=== PATIENT | female | born 1990 | race Two or more races ===

== ENCOUNTER 2018-03-30 08:16 | Emergency (ER) | payer BC ==
[2018-03-30 08:33] VITALS: BP 119/81
--- NOTE | 2018-03-30 08:46 | UC ---
Brian Bedolla Gabriel, scribed for Evgeny Cruz MD on 03/30/18 at 0834 . Eye Complaint HPI - HPI Summary HPI Summary: This patient is a 27 year old F presenting to [facility] with a chief complaint of right eye irritation that began yesterday. The patient rates the pain 2/10 in severity. Patient reports mild photophobia, eye pain, and some itching. Patient denies discharge, blurred vison, and injury. Pt has removed her contacts and not put them back in. She just got over a cold. - History of Current Complaint Stated Complaint: RIGHT EYE COMPLAINT Time Seen by Provider: 03/30/18 08:29 Hx Obtained From: Patient Hx Last Menstrual Period: 08/30/15 Onset/Duration: Lasting Days - 1, Still Present Timing: Constant Severity Initially: Mild Severity Currently: Mild Pain Intensity: 2 Location of Injury: Conjunctiva Aggravating Factor(s): Light Associated Signs And Symptoms: Positive: Photophobia. Negative: Drainage (Clear ), Drainage (Purulent), Vision Impairment Bilateral, Vision Impairment Right, Vision Impairment Left - Allergies/Home Medications Allergies/Adverse Reactions: Allergies Allergy/AdvReac Type Severity Reaction Status Date / Time No Known Allergies Allergy Verified 03/30/18 08:34 PMH/Surg Hx/FS Hx/Imm Hx Previously Healthy: Yes Other History Of: Negative For: Hepatitis B, Anticoagulant Therapy - Surgical History Surgical History: None - Family History Known Family History: Positive: Hypertension, Diabetes - Social History Occupation: Employed Full-time Lives: With Family Alcohol Use: None Substance Use Type: None Smoking Status (MU): Never Smoked Tobacco - Immunization History Most Recent Influenza Vaccination: 2011 Most Recent Tetanus Shot: 2010 Most Recent Pneumonia Vaccination: no Review of Systems Constitutional: Negative - fever Eyes: Eye Redness, Photophobia, Other - eye pain and itching All Other Systems Reviewed And Are Negative: Yes Physical Exam - Summary Physical Exam Summary: General: well-appearing, no pain distress Skin: warm, color reflects adequate perfusion, dry Head: normal Eyes: EOMI, LUCI, There is a right scleral injection. Pupils nml, no hyphemia, no evidence of trauma ENT: normal Neck: supple, nontender Respiratory: CTA, breath sounds present Cardiovascular: RRR Abdomen: soft, nontender Bowel: present Musculoskeletal: normal, strength/ROM intact Neurological: sensory/motor intact, A&O x3 Psychological: affect/mood appropriate Triage Information Reviewed: Yes Vital Signs: Initial Vital Signs Temp 97.9 F 03/30/18 08:31 Pulse 82 03/30/18 08:31 Resp 16 03/30/18 08:31 BP 119/81 03/30/18 08:31 Pulse Ox 98 03/30/18 08:31 Vital Signs Reviewed: Yes Eye Complaint Course/Dx - Course Course Of Treatment: NO TRAUMA. NO PAIN OR DECREASED VISION AT THIS TIME. RX TOBREX. DO NOT WEAR CONTACTS. F/U [facility] IF NOT COMPLETELY IMPROVED. 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 GET RECHECKED FOR ANY WORSENING OF YOUR CONDITION OR QUESTIONS OR CONCERNS. - Billing Disposition and Condition Condition: STABLE Disposition: Home The documentation as recorded by the Brian mckinley Gabriel accurately reflects the service I personally performed and the decisions made by me, Evgeny Cruz MD.
== END 2018-03-30 08:41 | disposition home or self-care (01) ==
LOC: UCEAST 08:16
DX: H10.9 Unspecified conjunctivitis (principal)
CPT/HCPCS: 99212; G0463

== ENCOUNTER 2018-05-09 13:02 | Emergency (ER) | payer BC ==
[2018-05-09 13:19] VITALS: BP 114/80
[2018-05-09] MEDS ORDERED: Ketorolac INJ* 60 MG/2 ML VIAL IM ONE (13:23)
--- NOTE | 2018-05-09 13:27 | UC ---
Upper Extremity HPI - HPI Summary HPI Summary: This is scribe Tracy Yap documenting for attending Leobardo Gutierrez M.D. Pt is a 27 y/o F who presents to [facility] c/o right 3rd and 4th finger pain s/p injury. 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 Associated pain is currently ranked 7-8/10 and applied ice upon arrival. - History of Current Complaint Chief Complaint: UCUpperExtremity Stated Complaint: FINGERS INJURY Hx Obtained From: Patient Hx Last Menstrual Period: last week Onset/Duration: Lasting Minutes - Started minutes AIRPLANE DESIGNER, Still Present Severity Currently: Moderate Pain Intensity: 7 Pain Scale Used: 0-10 Numeric Location Of Pain: Is Discrete @ - Right 3rd and 4th fingers Aggravating Factor(s): Nothing Alleviating Factor(s): Nothing - Allergies/Home Medications Allergies/Adverse Reactions: Allergies Allergy/AdvReac Type Severity Reaction Status Date / Time No Known Allergies Allergy Verified 05/09/18 13:14 Home Medications: Home Medications Ocrelizumab [Ocrevus] 300 mg IV 05/09/18 [History] PMH/Surg Hx/FS Hx/Imm Hx - Additional Past Medical History Additional PMH: PMHx: MS NEGATIVE PMHx: HTN, CAD, DM Other History Of: Negative For: Hepatitis B, Anticoagulant Therapy - Surgical History Surgical History: None - Family History Known Family History: Positive: Hypertension, Diabetes - Social History Alcohol Use: Occasionally Substance Use Type: None Smoking Status (MU): Never Smoked Tobacco - Immunization History Most Recent Influenza Vaccination: 2011 Most Recent Tetanus Shot: 2010 Most Recent Pneumonia Vaccination: no Review of Systems Constitutional: Negative Skin: Negative Eyes: Negative ENT: Negative Respiratory: Negative Cardiovascular: Negative Gastrointestinal: Negative Genitourinary: Negative Motor: Negative Neurovascular: Negative Musculoskeletal: Other: - Right 3rd and 4th finger pain Neurological: Negative Psychological: Negative All Other Systems Reviewed And Are Negative: Yes Physical Exam - Summary Physical Exam Summary: VITAL SIGNS: Reviewed. GENERAL: Patient is a well-developed and nourished female who is lying comfortable in the stretcher. Patient is not in any acute respiratory distress. HEAD AND FACE: Normocephalic EYES: PERRLA, EOMI x 2. EARS: Hearing grossly intact. MOUTH: Oropharynx within normal limits. NECK: Supple, trachea is midline, no adenopathy, no JVD, no carotid bruit. CHEST: Symmetric, no tenderness at palpation LUNGS: Clear to auscultation bilaterally. No wheezing or crackles. CVS: Regular rate and rhythm, S1 and S2 present, no murmurs or gallops appreciated. EXTREMITIES: Full ROM in all major joints, no edema, no cyanosis or clubbing. Right index and middle finger erythema and the right ring finger has a subungal hematoma. NEURO: Alert and oriented x 3. No acute neurological deficits. Speech is normal and follows commands. SKIN: Dry and warm Triage Information Reviewed: Yes Vital Signs: Initial Vital Signs Temp 99.9 F 05/09/18 13:14 Pulse 81 05/09/18 13:14 Resp 20 05/09/18 13:14 BP 114/80 05/09/18 13:14 Pulse Ox 100 05/09/18 13:14 Vital Signs Reviewed: Yes Diagnostics - Radiology Hand XR Radiology Interpretation Completed By: Radiologist - No fracture of the right hand is noted. Joint spaces well-preserved. Physician reviewed this report. Upper Extremity Course/Dx - Course Course Of Treatment: Patient is a 27-year-old female who presents to the urgent care with a chief complaint of having right fingers pain. X-ray shows that the patient has had distal phalanx fracture second and third digits nondisplaced. The patient doesn't have a subungual hematoma this point. However the patient was instructed to use if the pain increases and she has and the bridge discoloration under the nails she should return to the urgent care to reduce the pressure. She understands and agrees. The patient was placed in finger splints she was given pain medications and discharged home with follow-up with orthopedics. Patient also was given Toradol in the urgent care and she feels better. - Differential Dx/Diagnosis Provider Diagnoses: Finger fractures Discharge - Sign-Out/Discharge Documenting (check all that apply): Patient Departure - Discharge - Discharge Plan Condition: Stable Disposition: HOME Prescriptions: HYDROcodone/ACETAMIN 5-325 MG* [[place] 5-325 TAB*] 1 tab PO Q6H PRN #12 tab MDD 4 PRN Reason: Pain Patient Education Materials: Finger Fracture (ED) Forms: *Work Release Referrals: Nitesh Gutierrez MD [Primary Care Provider] - 3 Days Amber Cage MD [Medical Doctor] - 3 Days Additional Instructions: RETURN TO ED OR URGENT CARE FOR ANY NEW OR WORSENING SYMPTOMS.
--- NOTE | 2018-05-09 14:18 | RAD ---
Indication: Hand pain. 2 views of the right hand demonstrates no fracture. No other bone or joint abnormality is identified. IMPRESSION: No fracture of the right hand is noted. Joint spaces well-preserved.
== END 2018-05-09 13:50 | disposition home or self-care (01) ==
LOC: UCEAST 13:02
DX: S69.91XA Unspecified injury of right wrist, hand and finger(s), initial encounter (principal); W23.0XXA Caught, crushed, jammed, or pinched between moving objects, initial encounter; Y93.E6 Activity, residential relocation; Y92.9 Unspecified place or not applicable; Z82.49 Family history of ischemic heart disease and other diseases of the circulatory system; Z83.3 Family history of diabetes mellitus
CPT/HCPCS: 99213; G0463; J1885

== ENCOUNTER 2018-05-19 13:23 | Emergency (ER) | payer BC ==
[2018-05-19 13:47] VITALS: BP 124/72
--- NOTE | 2018-05-19 14:50 | UC ---
Back Pain HPI - HPI Summary HPI Summary: The pt is a 27 Y/o female presenting to c/o L flank and LLQ pain since yesterday night worse today. The pain described as sharp is rated 6/10 at worst and radiates to the gluteal region. She took Ibuprofen to no temporary relief. She is concerned about a UTI. The pain is aggravated by laying down, touch and walking . The pt denies recent injury. She also denies rash , loss of appetite, melena, and vaginal discharge. The s are similar to those of a previous episode of a UTI. This is scribe Kyra Branham documenting for attending Dr. Evgeny Cruz. I, Dr. Evgeny Cruz , personally performed the services described in this documentation as scribed in my presence and it is both accurate and complete. - History of Current Complaint Chief Complaint: UCBackPain Stated Complaint: BACK PAIN Time Seen by Provider: 05/19/18 14:30 Hx Obtained From: Patient Hx Last Menstrual Period: last week ?: No Onset/Duration: Lasting Days - 2 days, Worse Since - Today Timing: Constant Severity Initially: Mild Severity Currently: Mild Pain Intensity: 3 Pain Scale Used: 0-10 Numeric Back Pain: Is Discrete @ - L lower back pain Character: Sharp Aggravating Factor(s): Walking, Other - Laying down, touch Associated Signs And Symptoms: Positive: Negative - rash , loss of appetite, melena, and vaginal discharge., Abdominal Pain, Flank Pain - L side - Allergies/Home Medications Allergies/Adverse Reactions: Allergies Allergy/AdvReac Type Severity Reaction Status Date / Time No Known Allergies Allergy Verified 05/19/18 13:47 Home Medications: Home Medications Ibuprofen 200 mg PO 05/19/18 [History] PMH/Surg Hx/FS Hx/Imm Hx Previously Healthy: Yes - Denies a pMHx of shingles ,Crohns, and nephrolithiasis Other Neurological History: MS Other History Of: Negative For: Hepatitis B, Anticoagulant Therapy - Surgical History Surgical History: None - Family History Known Family History: Positive: Hypertension, Diabetes - Social History Occupation: Employed Full-time Lives: With Family Alcohol Use: Occasionally Substance Use Type: None Smoking Status (MU): Never Smoked Tobacco - Immunization History Most Recent Influenza Vaccination: 2011 Most Recent Tetanus Shot: 2010 Most Recent Pneumonia Vaccination: no Review of Systems Skin: Negative - Rash Gastrointestinal: Negative - Loss of appetite, melena, Abdominal Pain - L flank and LLQ Genitourinary: Negative - Vaginal discharge All Other Systems Reviewed And Are Negative: Yes Physical Exam - Summary Physical Exam Summary: General: well-appearing, no pain distress Skin: warm, color reflects adequate perfusion, dry Head: normal Eyes: EOMI, LUCI ENT: normal Neck: supple, nontender Respiratory: CTA, breath sounds present Cardiovascular: RRR Abdomen: soft, Mild tenderness to percussion of the L flank. No rash Bowel: present Musculoskeletal: normal, strength/ROM intact Neurological: sensory/motor intact, A&O x3 Psychological: affect/mood appropriate Triage Information Reviewed: Yes Vital Signs: Initial Vital Signs Temp 98.7 F 05/19/18 13:43 Pulse 70 05/19/18 13:43 Resp 18 05/19/18 13:43 BP 124/72 05/19/18 13:43 Pulse Ox 100 05/19/18 13:43 Vital Signs Reviewed: Yes Diagnostics - Radiology CT abd/ pel w/o contrast Radiology Interpretation Completed By: Radiologist - IMPRESSION: 1. NO HYDRONEPHROSIS OR NEPHROLITHIASIS. The ED physician has reviewed this radiology report and agrees wit it. Transaginal US Radiology Interpretation Completed By: Radiologist - IMPRESSION: INVOLUTING CYST RIGHT OVARY, OTHERWISE NEGATIVE The ED physician has reviewed thios radiology report and agrees with it. Back Pain Course/Dx - Course Course Of Treatment: DISCUSSED RESULTS WITH THE PATIENT. WILL TREAT UTI. F/U PMD; RECHECK SOONER IF WORSE. - Differential Dx/Diagnosis Provider Diagnoses: DYSURIA. HEMATURIA. LEFT ABDOMINAL PAIN. LEFT FLANK PAIN. RIGHT OVARIAN CYST Discharge - Sign-Out/Discharge Documenting (check all that apply): Patient Departure - Discharge Plan Condition: Stable Disposition: HOME Prescriptions: Sulfamethox/Trimethoprim DS* [Bactrim DS 800/160 TAB*] 1 tab PO BID #20 tab Patient Education Materials: Hematuria (ED), Acute Abdominal Pain (ED), Dysuria (ED), Flank Pain (ED) Referrals: Nitesh Gutierrez MD [Primary Care Provider] - Additional Instructions: FOLLOW UP WITH YOUR DOCTOR IF NOT COMPLETELY IMPROVED. GET RECHECKED FOR ANY WORSENING OF YOUR CONDITION OR QUESTIONS OR CONCERNS. - Billing Disposition and Condition Condition: STABLE Disposition: Home
--- NOTE | 2018-05-19 15:48 | RAD ---
CLINICAL HISTORY: LEFT FLANK PAIN COMPARISON: None TECHNIQUE: Multiple contiguous axial CT scans were obtained of the abdomen and pelvis, without intravenous contrast enhancement. Coronal and sagittal multiplanar reformations are submitted for review. Oral contrast was not administered. FINDINGS: The study is limited by the lack of intravenous contrast. This limits evaluation of the solid organs and vasculature. LUNG BASES: The lung bases are clear. LIVER: The liver is normal in shape, size, contour, and attenuation. BILE DUCTS: There is no intrahepatic or extrahepatic biliary dilatation. GALLBLADDER: The gallbladder is incompletely distended and is not well evaluated. PANCREAS: The pancreas is normal, without mass or ductal dilatation. SPLEEN: Normal in size and appearance. UPPER GI TRACT: Evaluation of the gastrointestinal tract is limited by incomplete gastric distention. The upper GI tract is unremarkable. SMALL BOWEL AND MESENTERY: The small bowel is normal in contour, course, and caliber. There is no obstruction or dilatation. COLON: The colon is normal in contour, course, caliber. There is no pericolonic inflammatory change. There is a tubular, vermiform, hollow viscus that is blind ending, and originates from the cecum, consistent with a normal appendix. There is no periappendiceal inflammatory change. This is best seen on axial images 120 December 05, 1935. ADRENALS: Normal bilaterally. KIDNEYS: The kidneys are normal in shape, size, contour, and axis. There is no hydronephrosis or nephrolithiasis. BLADDER: The bladder is smooth in contour. PELVIC ORGANS: The uterus and adnexa are grossly normal for technique. There is a small amount of free fluid within the pelvis. This may be physiologic within a reproductive age female. AORTA: The aorta is normal. IVC: Unremarkable LYMPH NODES: There is no lymphadenopathy by size criteria. ABDOMINAL WALL: There is no evidence for abdominal wall hernia. BONES AND SOFT TISSUES: The bones and soft tissues are unremarkable. OTHER: None IMPRESSION: 1. NO HYDRONEPHROSIS OR NEPHROLITHIASIS. 2. SMALL AMOUNT OF FLUID WITHIN THE PELVIC CUL-DE-SAC. THIS MAY BE PHYSIOLOGIC WITHIN A REPRODUCTIVE AGE FEMALE.
--- NOTE | 2018-05-19 16:45 | RAD ---
INDICATION: Left flank pain. Negative beta hCG COMPARISON: None TECHNIQUE: Longitudinal and transverse transvaginal scans of the pelvis were obtained. FINDINGS: Uterus: The uterus is normal in size. There are no focal masses. The uterus measures 6.7 x 3.6 x 4.6 cm. Endometrial thickness: The endometrial thickness is measured at 1.1 cm. . Free fluid: There is no significant free fluid . Ovaries: The ovaries are normal in size. The right ovary measures 3.2 x 1.9 x 2.2 cm. The left ovary measures 1.9 x 1.0 x 1.6 cm. There is an involuting cyst in the right ovary measuring 2.0 x 1.2 x 1.4 cm. Doppler interrogation demonstrates flow to each ovary. Other: None IMPRESSION: INVOLUTING CYST RIGHT OVARY, OTHERWISE NEGATIVE
== END 2018-05-19 17:25 | disposition home or self-care (01) ==
LOC: UCEAST 13:23
DX: N83.291 Other ovarian cyst, right side (principal); R30.0 Dysuria; R31.9 Hematuria, unspecified; R10.32 Left lower quadrant pain
CPT/HCPCS: 74176; 76830; 81003; 84702; 87077; 87086; 87186; 99212; G0463

== ENCOUNTER 2018-12-26 18:43 | Emergency (ER) | payer BC ==
[2018-12-26 18:51] VITALS: BP 142/91
--- NOTE | 2018-12-26 19:06 | UC ---
Ear Complaint HPI - HPI Summary HPI Summary: C/O URI sx x 6 days with left ear pain today. No sinus pain or SOB. - History of Current Complaint Chief Complaint: UCRespiratory Stated Complaint: EAR PAIN Hx Obtained From: Patient Hx Last Menstrual Period: 1 WEEK AGO ?: No Onset/Duration: Sudden Onset, Lasting Days - 6, Still Present Severity Initially: Mild Severity Currently: Mild Pain Intensity: 3 Alleviating Factors: Nothing Associated Signs/Symptoms: Positive: URI Symptoms - Allergies/Home Medications Allergies/Adverse Reactions: Allergies Allergy/AdvReac Type Severity Reaction Status Date / Time No Known Allergies Allergy Verified 12/26/18 18:51 Home Medications: Home Medications Acetaminophen TAB* [Tylenol TAB*] 975 mg PO Q6H PRN 12/26/18 [History Confirmed 12/26/18] Cough Medicine* 12/26/18 [History] Dm/Acetaminophen/Doxylamine [Vicks Nyquil Liquicaps] 1 each PO 12/26/18 [History ] Vitamins* 12/26/18 [History] PMH/Surg Hx/FS Hx/Imm Hx Other Neurological History: Multiple Sclerosis Other History Of: Negative For: Hepatitis B, Anticoagulant Therapy - Surgical History Surgical History: None - Family History Known Family History: Positive: Cardiac Disease, Hypertension, Diabetes - Social History Occupation: Employed Full-time Lives: With Family Alcohol Use: Occasionally Substance Use Type: None Smoking Status (MU): Current Some Day Smoker - Immunization History Most Recent Influenza Vaccination: 2011 Most Recent Tetanus Shot: 2010 Most Recent Pneumonia Vaccination: no Review of Systems All Other Systems Reviewed And Are Negative: Yes Constitutional: Positive: Fatigue ENT: Positive: Sore Throat, Ear Ache, Nasal Discharge Respiratory: Positive: Cough Is Patient Immunocompromised?: No Physical Exam Triage Information Reviewed: Yes Appearance: No Pain Distress, Well-Nourished, Ill-Appearing Vital Signs: Initial Vital Signs Temp 100.8 F 12/26/18 18:48 Pulse 94 12/26/18 18:48 Resp 16 12/26/18 18:48 BP 142/91 12/26/18 18:48 Pulse Ox 100 12/26/18 18:48 Vital Signs Reviewed: Yes Eyes: Positive: Conjunctiva Clear ENT: Positive: Pharynx normal, TMs normal - slight retraction on the left Neck exam: Normal Respiratory Exam: Normal Cardiovascular Exam: Normal Musculoskeletal Exam: Normal Neurological Exam: Normal Psychological Exam: Normal Skin Exam: Normal Ear Complaint Course/Dx - Differential Dx/Diagnosis Differential Diagnosis/HQI/PQRI: Otitis Externa, Otitis Media, Pharyngitis, URI Provider Diagnosis: Upper respiratory infection Discharge - Sign-Out/Discharge Documenting (check all that apply): Patient Departure All imaging exams completed and their final reports reviewed: No Studies - Discharge Plan Condition: Stable Disposition: HOME Patient Education Materials: Upper Respiratory Infection (ED) Referrals: Nitesh Gutierrez MD [Primary Care Provider] - Additional Instructions: NASAL SPRAYS AND DROPS: Afrin in the PUMP/ MIST bottle (Get generic 12 hours nasal decongestant spray). Tilt your head down and look at the floor while doing a strong sniff with the spray. Decongestant nasal sprays and drops often give dramatic relief from congestion. They are often recommended for patients with sinus infection to assist with sinus drainage. Persons with high blood pressure should consult the doctor before using these nasal sprays. Afrin and Ed-Synephrine are common [id number] preparations. They should not be used for more than five days, as "rebound" congestion can occur - - the congestion flares as the drug wears off. A way of dealing with this rebound congestion problem is to medicate only one nostril each time, allowing the other nostril to recover from the medicine' s effects. When you no longer need the drug during the day, spray only one nostril each night. This helps you sleep well without severe rebound congestion. Call the doctor if you develop severe headache, palpitations, or chest pain. - Billing Disposition and Condition Condition: STABLE Disposition: Home
== END 2018-12-26 19:14 | disposition home or self-care (01) ==
LOC: UCEAST 18:43
DX: J06.9 Acute upper respiratory infection, unspecified (principal); H92.02 Otalgia, left ear; H73.892 Other specified disorders of tympanic membrane, left ear; F17.200 Nicotine dependence, unspecified, uncomplicated
CPT/HCPCS: 99211; G0463

== ENCOUNTER 2019-01-29 15:16 | Emergency (ER) | payer BC ==
[2019-01-29 15:39] VITALS: BP 125/75
--- NOTE | 2019-01-29 16:37 | ED ---
Throat Pain/Nasal Congestion - HPI Summary HPI Summary: 28-year-old female presents with bilateral eye discharge for the past couple days. States she's had upper respiratory infection for the past week but then started developing drainage from her left eye with spread to her right. She stopped wearing her contacts. She denies any foreign body in the eye. No change in vision. She wakes up every morning with crusty some underlying. States she has watery discharge throughout the day. - History of Current Complaint Chief Complaint: UCEye Time Seen by Provider: 01/29/19 16:31 - Allergies/Home Medications Allergies/Adverse Reactions: Allergies Allergy/AdvReac Type Severity Reaction Status Date / Time No Known Allergies Allergy Verified 01/29/19 15:39 Home Medications: Home Medications guaiFENesin ER TAB [Mucinex*] 600 mg PO DAILY PRN 01/29/19 [History Confirmed ] PMH/Surg Hx/FS Hx/Imm Hx Endocrine/Hematology History: Denies: Hx Anticoagulant Therapy, Hx Diabetes, Hx Thyroid Disease Cardiovascular History: Denies: Hx Hypertension, Hx Pacemaker/ICD Respiratory History: Denies: Hx Asthma, Hx Chronic Obstructive Pulmonary Disease (COPD) GI History: Denies: Hx Ulcer Sensory History: Reports: Hx Contacts or Glasses Denies: Hx Hearing Aid Opthamlomology History: Reports: Hx Contacts or Glasses Neurological History: Reports: Hx Headaches - come and go Psychiatric History: Reports: Hx Anxiety Denies: Hx Panic Disorder Infectious Disease History: No Infectious Disease History: Denies: Hx Clostridium Difficile, Hx Hepatitis, Hx Human Immunodeficiency Virus (HIV), Hx of Known/Suspected MRSA, Hx Shingles, Hx Tuberculosis, Hx Known/ Suspected VRE, Hx Known/Suspected VRSA, History Other Infectious Disease, Traveled Outside the [place] in Last 30 Days - Family History Known Family History: Positive: Cardiac Disease, Hypertension, Diabetes - Social History Alcohol Use: Occasionally Substance Use Type: Reports: None Smoking Status (MU): Former Smoker Review of Systems Negative: Fever Positive: Drainage, Erythema Negative: Chest Pain Negative: Shortness Of Breath All Other Systems Reviewed And Are Negative: Yes Physical Exam Triage Information Reviewed: Yes Vital Signs On Initial Exam: Initial Vitals Temp Pulse Resp BP Pulse Ox 99.7 F 87 12 125/75 100 01/29/19 15:33 01/29/19 15:33 01/29/19 15:33 01/29/19 15:33 01/29/19 15:33 Vital Signs Reviewed: Yes Appearance: Positive: Well-Appearing Skin: Positive: Warm, Dry Head/Face: Positive: Normal Head/Face Inspection Eyes: Positive: EOMI, LUCI, Conjunctiva Inflammed, Discharge ENT: Positive: Normal ENT inspection, Pharynx normal, TMs normal Respiratory/Lung Sounds: Positive: Clear to Auscultation, Breath Sounds Present Cardiovascular: Positive: Normal, RRR Abdomen Description: Positive: Nontender, Soft Bowel Sounds: Positive: Present Musculoskeletal: Positive: Normal Neurological: Positive: Normal Psychiatric: Positive: Normal Diagnostics - Vital Signs Vital Signs Temp Pulse Resp BP Pulse Ox 01/29/19 15:33 99.7 F 87 12 125/75 100 - Laboratory Lab Statement: Any lab studies that have been ordered have been reviewed, and results considered in the medical decision making process. EENT Course/Dx - Course Course Of Treatment: 28-year-old female presents with bilateral eye discharge for the past couple days. States she's had upper respiratory infection for the past week but then started developing drainage from her left eye with spread to her right. She stopped wearing her contacts. She denies any foreign body in the eye. No change in vision. She wakes up every morning with crusty some underlying. States she has watery discharge throughout the day. On exam injected conjunctiva. Some pus noted to left eye. We will treat conjunctivitis with Cipro. Warned if not improving to follow up with optho. Told to wash hands and throw out contacts. Patient understands agrees with plan. - Differential Diagnoses Differential Diagnoses: Conjunctivitis, Corneal Abrasion, URI/Bronchitis - Diagnoses Provider Diagnoses: Conjunctivitis Discharge - Sign-Out/Discharge Documenting (check all that apply): Patient Departure All imaging exams completed and their final reports reviewed: No Studies - Discharge Plan Condition: Good Disposition: HOME Prescriptions: Ciprofloxacin 0.3% OPTH.WARREN* [Cipro 0.3% Opth*] 1 drop BOTH EYES QID #1 btl Patient Education Materials: Conjunctivitis (ED) Referrals: Nitesh Gutierrez MD [Primary Care Provider] - Deepak Hurst MD [Medical Doctor] - Additional Instructions: Place 1 drop in eye four times a day for 7 days Wash hands after touching eye Throw out contacts and do not wear contacts until infection clears Follow up with ophthalmology if no improvement Return to ED if develop any new or worsening symptoms - Billing Disposition and Condition Condition: GOOD Disposition: Home
== END 2019-01-29 16:49 | disposition home or self-care (01) ==
LOC: UCEAST 15:16
DX: H10.9 Unspecified conjunctivitis (principal); Z87.891 Personal history of nicotine dependence
CPT/HCPCS: 99212; G0463

== ENCOUNTER 2019-02-19 13:11 | Emergency (ER) | payer BC ==
[2019-02-19 13:44] VITALS: BP 139/78
--- NOTE | 2019-02-19 13:46 | UC ---
Eye Complaint HPI - HPI Summary HPI Summary: 28 yo female presents with left eye redness, watering, and yellow crust/ drainage since this morning. She tells me that she wears monthly contacts and just opened a new pack about a week ago. She had b/l conjunctivitis about 3 weeks ago and was treated with cipro eye drops with good relief. She made an appt with her eye doctor, but they cannot see her until Friday 02/23. She denies trauma to the eye, sleeping in her contacts, fever, sinus symptoms, sore throat. - History of Current Complaint Chief Complaint: UCEye Stated Complaint: EYE ISSUE Time Seen by Provider: 02/19/19 13:45 Hx Obtained From: Patient Hx Last Menstrual Period: currently Onset/Duration: Sudden Onset Severity Currently: None Pain Intensity: 0 - Allergies/Home Medications Allergies/Adverse Reactions: Allergies Allergy/AdvReac Type Severity Reaction Status Date / Time No Known Allergies Allergy Verified 02/19/19 13:44 PMH/Surg Hx/FS Hx/Imm Hx - Additional Past Medical History Additional PMH: MS Other History Of: Negative For: Hepatitis B, Anticoagulant Therapy - Surgical History Surgical History: None - Family History Known Family History: Positive: Cardiac Disease, Hypertension, Diabetes - Social History Occupation: Employed Full-time Alcohol Use: Occasionally Substance Use Type: None Smoking Status (MU): Former Smoker - Immunization History Most Recent Influenza Vaccination: 2011 Most Recent Tetanus Shot: 2010 Most Recent Pneumonia Vaccination: no Review of Systems All Other Systems Reviewed And Are Negative: Yes Constitutional: Positive: Negative Skin: Positive: Negative Eyes: Positive: Drainage, Eye Redness ENT: Positive: Negative Respiratory: Positive: Negative Cardiovascular: Positive: Negative Gastrointestinal: Positive: Negative Neurovascular: Positive: Negative Neurological: Positive: Negative Psychological: Positive: Negative Physical Exam - Summary Physical Exam Summary: GENERAL: WDWN. No pain distress. SKIN: No rashes, sores, lesions, or open wounds. HEENT: Head: AT/NC Eyes: EOM intact. PERRLA. LEFT EYE: Mild scleral injection. Conjunctiva with moderate erythema and inflammation. Mild yellow discharge. Fluorescein dye exam: No abrasion, ulcer, or kelly sign. RIGHT EYE: Conjunctiva clear without inflammation or discharge. No FBs appreciated. Nose: NTTP maxillary and frontal sinus. NECK: Supple. Nontender. No lymphadenopathy. CHEST: No accessory muscle use. Breathing comfortably and in no distress. CV: Pulses intact. Cap refill <2seconds NEURO: Alert. PSYCH: Age appropriate behavior. Triage Information Reviewed: Yes Vital Signs: Initial Vital Signs Temp 99.2 F 02/19/19 13:37 Pulse 82 02/19/19 13:37 Resp 16 02/19/19 13:37 BP 139/78 02/19/19 13:37 Pulse Ox 99 02/19/19 13:37 Vital Signs Reviewed: Yes Eye Complaint Course/Dx - Course Course Of Treatment: Left eye conjunctivitis. Given contact use will rx for ofloxacin and have her refrain from using her contacts until symptoms have resolved. Advised to keep appt with eye doctor on friday for a recheck - Differential Dx/Diagnosis Provider Diagnosis: Conjunctivitis Discharge - Sign-Out/Discharge Documenting (check all that apply): Patient Departure All imaging exams completed and their final reports reviewed: No Studies - Discharge Plan Condition: Stable Disposition: HOME Prescriptions: Ofloxacin 0.3% (Eye Drop) [Ocuflox OPTH 0.3% (Eye Drop)] 1 drop LEFT EYE QID #1 btl Patient Education Materials: Conjunctivitis (ED) Referrals: Nitesh Gutierrez MD [Primary Care Provider] - Additional Instructions: If you develop a fever, shortness of breath, chest pain, new or worsening symptoms - please call your PCP or go to the ED immediately. Your blood pressure was high at todays visit. Please see your primary provider within 4 weeks for recheck and re-evaluation. 1) Do not wear your contacts until your eye is completely resolved for at least 24 hours - Billing Disposition and Condition Condition: STABLE Disposition: Home
[2019-02-19] MEDS ORDERED: Fluorescein Sodium TOPICAL* 1 MG TEST STRIP OPHTHALMIC ONE (13:54)
[2019-02-19] MEDS ORDERED: Tetracaine 0.5% OPTH.SOL 4 ML* 1 DROP BTL LEFT EYE ONE (13:54)
== END 2019-02-19 14:11 | disposition home or self-care (01) ==
LOC: UCEAST 13:11
DX: H10.32 Unspecified acute conjunctivitis, left eye (principal); G35 Multiple sclerosis; Z87.891 Personal history of nicotine dependence
CPT/HCPCS: 99212; A9270-GY; G0463

== ENCOUNTER 2019-06-11 18:05 | Emergency (ER) | payer BC ==
[2019-06-11 18:16] VITALS: BP 133/76
--- NOTE | 2019-06-11 18:19 | UC ---
Eye Complaint HPI - HPI Summary HPI Summary: 28 yo female presents with right eye redness and drainage for the last 2 days. She tells me that she noticed some redness to her right eye 2 days ago when she woke up. She does wear contacts, but immediately removed them and threw them away after noticing her eye. Has been using her glasses since that time. Yesterday and today noticed some yellow colored drainage to the eye with crusting. She was swimming in the ocean in [place] recently. No FB, injury, or vision changes. Denies fever or chills. - History of Current Complaint Chief Complaint: UCEye Stated Complaint: EYE COMPLAINT Time Seen by Provider: 06/11/19 18:18 Hx Obtained From: Patient Hx Last Menstrual Period: 3 WEEKS AGO Onset/Duration: Sudden Onset Severity Initially: Mild Severity Currently: Mild Pain Intensity: 1 Pain Scale Used: 0-10 Numeric - Allergies/Home Medications Allergies/Adverse Reactions: Allergies Allergy/AdvReac Type Severity Reaction Status Date / Time No Known Allergies Allergy Verified 06/11/19 18:16 Home Medications: Home Medications Acetaminophen [Tylenol Extra Strength] 1,000 mg PO ONCE PRN 06/11/19 [History Confirmed 06/11/19] Vitamins* PO DAILY 06/11/19 [History] PMH/Surg Hx/FS Hx/Imm Hx - Additional Past Medical History Additional PMH: Multiple sclerosis Other History Of: Negative For: Hepatitis B, Anticoagulant Therapy - Surgical History Surgical History: None - Family History Known Family History: Positive: Cardiac Disease, Hypertension, Diabetes - Social History Lives: With Family Alcohol Use: Occasionally Substance Use Type: None Smoking Status (MU): Former Smoker - Immunization History Most Recent Influenza Vaccination: 2011 Most Recent Tetanus Shot: 2010 Most Recent Pneumonia Vaccination: no Review of Systems All Other Systems Reviewed And Are Negative: No Constitutional: Positive: Negative Skin: Positive: Negative Eyes: Positive: Drainage, Eye Redness ENT: Positive: Negative Respiratory: Positive: Negative Cardiovascular: Positive: Negative Neurological: Positive: Negative Psychological: Positive: Negative Physical Exam - Summary Physical Exam Summary: GENERAL: WDWN. No pain distress. SKIN: No rashes, sores, lesions, or open wounds. HEENT: Head: AT/NC Eyes: EOM intact. PERRLA. RIGHT EYE: Mild scleral injection. Conjunctiva with mild erythema and inflammation. Mild yellow discharge. LEFT EYE : Conjunctiva clear without inflammation or discharge. No FBs appreciated Nose: NTTP maxillary and frontal sinus. NECK: Supple. Nontender. No lymphadenopathy. CHEST: No accessory muscle use. Breathing comfortably and in no distress. CV: Pulses intact. Cap refill <2seconds NEURO: Alert. PSYCH: Age appropriate behavior. Triage Information Reviewed: Yes Vital Signs: Initial Vital Signs Temp 98.6 F 06/11/19 18:12 Pulse 83 06/11/19 18:12 Resp 16 06/11/19 18:12 BP 133/76 06/11/19 18:12 Pulse Ox 100 06/11/19 18:12 Vital Signs Reviewed: Yes Eye Complaint Course/Dx - Course Course Of Treatment: Right conjunctivitis - Differential Dx/Diagnosis Provider Diagnosis: Conjunctivitis Discharge ED - Sign-Out/Discharge Documenting (check all that apply): Patient Departure All imaging exams completed and their final reports reviewed: No Studies - Discharge Plan Condition: Stable Disposition: HOME Prescriptions: Ofloxacin 0.3% (Eye Drop) [Ocuflox OPTH 0.3% (Eye Drop)] 1 drop RIGHT EYE QID # 1 btl Patient Education Materials: Conjunctivitis (ED) Referrals: Nitesh Gutierrez MD [Primary Care Provider] - Additional Instructions: If you develop a fever, shortness of breath, chest pain, new or worsening symptoms - please call your PCP or go to the ED immediately. - Billing Disposition and Condition Condition: STABLE Disposition: Home
== END 2019-06-11 18:33 | disposition home or self-care (01) ==
LOC: UCEAST 18:05
DX: H10.9 Unspecified conjunctivitis (principal); Z87.891 Personal history of nicotine dependence
CPT/HCPCS: 99212; G0463

== ENCOUNTER 2019-07-29 14:41 | Emergency (ER) | payer BC ==
[2019-07-29 14:52] VITALS: BP 146/83
--- NOTE | 2019-07-29 15:38 | UC ---
Respiratory Complaint HPI - HPI Summary HPI Summary: The patient is a 29-year-old female with a 7 day history of nasal congestion postnasal drip and productive cough. She has not been feverish but has been feeling ill. Today she started having some purulent drainage from her left eye. She denies any photophobia. She denies any foreign body sensation. She does not wear contact lenses. She has been fatigued. She is on an agent by infusion for her relapsing multiple sclerosis. - History of Current Complaint Chief Complaint: UCEye Stated Complaint: SINUS COMPLAINT Time Seen by Provider: 07/29/19 15:24 Hx Obtained From: Patient Hx Last Menstrual Period: [id number] Onset/Duration: Gradual Onset, Lasting Days - 7 Timing: Constant Severity Initially: Mild Severity Currently: Moderate Pain Intensity: 2 Pain Scale Used: 0-10 Numeric Character: Cough: Productive Aggravating Factors: Nothing Alleviating Factors: Nothing Associated Signs And Symptoms: Positive: Nasal Congestion, Sinus Discomfort. Negative: Fever, Chills, Pleuritic Chest Pain, Wheezing, Hemoptysis, Dizziness, Calf Pain, Calf Swelling, Edema, URI - Allergies/Home Medications Allergies/Adverse Reactions: Allergies Allergy/AdvReac Type Severity Reaction Status Date / Time No Known Allergies Allergy Verified 07/29/19 14:52 Home Medications: Home Medications diPHENhydraMINE PO* [Benadryl PO 25 MG TAB*] 25 mg PO BEDTIME PRN 07/29/19 [ History Confirmed 07/29/19] PMH/Surg Hx/FS Hx/Imm Hx Previously Healthy: Yes Neurological History: Other Other Neurological History: MS Other History Of: Negative For: Hepatitis B, Anticoagulant Therapy - Surgical History Surgical History: None - Family History Known Family History: Positive: Cardiac Disease, Hypertension, Diabetes - Social History Alcohol Use: Weekly Substance Use Type: Marijuana Substance Use Comment - Amount & Last Used: weekly Smoking Status (MU): Former Smoker - Immunization History Most Recent Influenza Vaccination: 2011 Most Recent Tetanus Shot: 2010 Most Recent Pneumonia Vaccination: no Review of Systems All Other Systems Reviewed And Are Negative: Yes Constitutional: Positive: Fatigue Skin: Positive: Negative Eyes: Positive: Drainage, Eye Redness ENT: Positive: Nasal Discharge, Sinus Congestion, Sinus Pain/Tenderness Respiratory: Positive: Cough Cardiovascular: Positive: Negative Gastrointestinal: Positive: Negative Genitourinary: Positive: Negative Motor: Positive: Negative Neurovascular: Positive: Negative Musculoskeletal: Positive: Negative Neurological: Positive: Negative Psychological: Positive: Negative Physical Exam Triage Information Reviewed: Yes Appearance: Well-Appearing, No Pain Distress, Well-Nourished Vital Signs: Initial Vital Signs Temp 98.3 F 07/29/19 14:48 Pulse 89 07/29/19 14:48 Resp 16 07/29/19 14:48 BP 146/83 07/29/19 14:48 Pulse Ox 100 07/29/19 14:48 Vital Signs Reviewed: Yes Eyes: Positive: Conjunctiva Inflamed - L, Discharge - L ENT: Positive: Hearing grossly normal, Nasal congestion, Nasal drainage, TMs normal, Sinus tenderness. Negative: Tonsillar swelling, Tonsillar exudate, Trismus, Muffled voice, Hoarse voice, Uvula midline Neck: Positive: Supple, Nontender, No Lymphadenopathy Respiratory: Positive: Lungs clear, Normal breath sounds, No respiratory distress, No accessory muscle use Cardiovascular: Positive: RRR, No Murmur Musculoskeletal: Positive: ROM Intact, No Edema Neurological: Positive: Alert Psychological Exam: Normal Skin Exam: Normal Respiratory Course/Dx - Course Course Of Treatment: Because she is on a medicine for her relapsing MS that increases her risk of serious bacterial infection I will institute antibiotics even though her symptoms have been for less than 10 days. - Differential Dx/Diagnosis Provider Diagnosis: Acute sinusitis, Left conjunctivitis, Elevated BP without diagnosis of hypertension Discharge ED - Sign-Out/Discharge Documenting (check all that apply): Patient Departure All imaging exams completed and their final reports reviewed: No Studies - Discharge Plan Condition: Stable Disposition: HOME Prescriptions: Amoxicillin PO (*) [Amoxicillin 875 MG (*)] 875 mg PO BID #14 tab Polymyx/Trimethoprim OPTH* [Polytrim OPHTH*] 1 - 2 drop LEFT EYE QID 7 Days #1 btl Patient Education Materials: Sinusitis (ED), Conjunctivitis (ED) Forms: *Work Release Referrals: Nitesh Gutierrez MD [Primary Care Provider] - 5 Days (if not better) Additional Instructions: warm facial compresses saline nasal spray 2 sprays each nostril twice daily until better You can use [facility] eye deops OTC recheck for new or worsening symptoms your BP here was a little elevated...probably due to being ill\ please recheck with your MD in 2-12 weeks - Billing Disposition and Condition Condition: STABLE Disposition: Home
== END 2019-07-29 15:57 | disposition home or self-care (01) ==
LOC: UCEAST 14:41
DX: J01.90 Acute sinusitis, unspecified (principal); H10.9 Unspecified conjunctivitis; I10 Essential (primary) hypertension; G35 Multiple sclerosis; Z87.891 Personal history of nicotine dependence
CPT/HCPCS: 99212; G0463